=== PATIENT | female | born 1960 | race African-American/Black ===

== ENCOUNTER 2017-01-16 13:03 | Inpatient (IN) | payer OTHER ==
[~2017-01-16] VITALS: Ht 157.5 cm; Wt 51.3 kg
--- NOTE | ~2017-01-16 | EKG ---
[address] [address] ELECTROCARDIOGRAM REPORT Name: INGRID BARROS Room #: 417-I ADM IN M.R.#: [id number] Admission: 01/16/17 Attend Phys: Jayson Talbert Discharge: Date of : 60 Report #: [id number] THIS REPORT FOR: //name// [facility] ED Test Date: 2017-01-16 Test Time: 13:31:36 Pat Name: INGRID BARROS Department: Room: [facility] Gender: F Account Service Representative: fatimah : 1960 Requested By: Tad Wheatley Order Number: [id number] MD: Mateus Pena Measurements Intervals [place] Rate: 73 P: 52 AR: 160 QRS: 9 QRSD: 90 T: -27 QT: 422 QTc: 465 Interpretive Statements Sinus rhythm Nonspecific T abnormalities, anterior leads No previous ECG available for comparison Electronically Signed On 01-18-2017 9:43:31 CDT by Mateus Pena [email or web address] <ELECTRONICALLY SIGNED> By: Mateus Pena MD 01/18/17 0943 1331 30 Mateus Pena MD /MARSHA
--- NOTE | ~2017-01-16 | HC ---
[facility] [place] [address] CONSULTATION Name: INGRID BARROS Room #: 417-I ADM IN M.R.#: [id number] Admission: 01/16/17 Attend Phys: Jayson Talbert Discharge: Date of : 60 Report #: [id number] THIS REPORT FOR: //name// CC: MIGEL physician/PCP Jayson Talbert INFECTIOUS DISEASE CONSULTATION REASON FOR CONSULTATION: I was asked to evaluate concerning pneumonia in the setting of lung cancer. HISTORY OF PRESENT ILLNESS: The patient was a 56-year-old who presented to the emergency room with shortness of breath along with productive cough, a green sputum, myalgias, arthralgias, headache and low-grade fever with intermittent chills. Has progressed over the last 3 weeks. She is on for nonresectable lung cancer. Two years ago, she was diagnosed with right upper lobe lung cancer that was not amenable to surgical resection. She underwent radiation therapy followed by chemotherapy, which she did not tolerate well and was switched over to Opdivo, which has been well tolerated and the patient states her tumor has shown good response. She undergoes frequent CT scans. Her last CT of the chest was approximately one month ago at [facility]. She received her last Opdivo dose 2 weeks ago. No travel outside the [place]. No tuberculosis exposure. No history of histoplasma infection. PAST MEDICAL HISTORY: Otherwise, unremarkable. ALLERGIES: None known. MEDICATIONS: As noted on her MAR, including Zosyn and Levaquin that were started today. FAMILY HISTORY: Noncontributory. SOCIAL HISTORY: She was a past smoker of cigarettes. No significant alcohol intake. Now is disabled from being a hairdresser, lives with her daughter. REVIEW OF SYSTEMS: Had some nausea and emesis, but has been able to keep fluids down. No abdominal pain or diarrhea. No dysuria or frequency. No rash. No other arthritis symptoms. PHYSICAL EXAMINATION: VITAL SIGNS: Afebrile and hemodynamically stable. Oxygen saturation 98% on room air. SKIN: Unremarkable. LYMPH: Unremarkable. HEENT: Dentures, otherwise unremarkable. NECK: Supple. [facility] [address] [place] [address] CONSULTATION Name: INGRID BARROS Room #: 417-I ADM IN .R.#: [id number] Admission: 01/16/17 Attend Phys: Jayson Talbert Discharge: Date of : 60 Report #: [id number] LUNGS: Clear anteriorly. She had consolidation in the right eul-zv-kraxn posterior chest with consolidation. No rub. HEART: Tachycardic and regular. ABDOMEN: Soft, nontender. No hepatosplenomegaly or mass. EXTREMITIES: Unremarkable. She had a right chest Port-A-Cath, site was unremarkable. NEUROLOGIC EXAMINATION: Nonfocal. LABORATORY STUDIES: Sodium 141, potassium 3.7, bicarbonate 26 and creatinine 0.7. Alkaline phosphatase 142. Hemoglobin 12.4, platelet count 246,000 and white count 6.3. Differential unremarkable. Chest x-ray, right upper lobe infiltrate with destruction of rib. CT scan of the chest confirms the same with 6 x 5.8 x 3.1 cm cavitary lesion in the right upper lobe with a 2-cm cyst within the concerned area. Right lower lobe nodular density also present. Adjacent to this area were erosions of the ribs with sclerosis, suggesting chronic erosion. IMPRESSION: Extensive right lung upper lobe cancer, on chemotherapy and previous radiation in a nonresectable lesion. She has fever, increased sputum production concerning for secondary infection in this region. The bony erosions, I suspect, are chronic in nature and related to her tumor. RECOMMENDATIONS: Continue broad antibiotic coverage. Sputum culture. Blood culture and compare CT scan to her previous scan at [facility]. <ELECTRONICALLY SIGNED> By: Travis Rowell MD 01/17/17 0844 1603 0010 Travis Rowell MD /nt
[2017-01-16 13:04] VITALS: BP 99/67
[2017-01-16 13:56] LABS: ABSOLUTE NEUTROPHILS 4.1 thou/uL (1.4-8.2); BASOPHILS 0.8 % (0.0-2.0); EOSINOPHILS 2.8 % (0.0-3.0); HEMATOCRIT 37.9 % (37.0-47.0); HEMOGLOBIN 12.4 gm/dL (12.0-15.0); LYMPHOCYTES 21.1 % (24.0-44.0); MCH 28.5 pg (26.0-34.0); MCHC 32.7 g/dL (28.0-37.0); MCV 87.2 fL (80.0-100.0); MONOCYTES 10.1 % (1.0-8.0); PLATELET COUNT 246 thou/uL (150-400); POLYS 65.2 % (36.0-66.0); RBC 4.35 mil/uL (4.20-5.00); RDW 14.5 % (10.5-14.5); WBC 6.3 thou/uL (4.0-11.0)
[2017-01-16 13:58] LABS: MANUAL DIFF NO
[2017-01-16 14:06] LABS: ANION GAP 10 mmol/L (7-16); BUN 8 mg/dL (7-18); CALCIUM 9.1 mg/dL (8.5-10.1); CHLORIDE 105 mmol/L (98-107); CO2 26 mmol/L (21-32); CREATININE 0.7 mg/dL (0.6-1.0); GLUCOSE 107 mg/dL (74-106); POTASSIUM 3.7 mmol/L (3.5-5.1); SODIUM 141 mmol/L (136-145)
[2017-01-16 14:13] LABS: ALBUMIN 3.4 g/dL (3.4-5.0); ALKALINE PHOSPHATASE 142 U/L (46-116); SGOT 18 U/L (15-37); SGPT 19 U/L (30-65); TOTAL BILIRUBIN 0.3 mg/dL (<0.1-1.0); TOTAL PROTEIN 7.6 g/dL (6.4-8.2); TROPONIN-I < 0.04 ng/mL (<0.04-0.07)
[2017-01-16] MEDS ORDERED: NORCO 10-325 T1 EACH PO (14:46)
[2017-01-16] MEDS ORDERED: MS CONTIN 30 MG30 MG PO (14:49)
[2017-01-16] MEDS ORDERED: MS CONTIN 60 MG60 M1 PO (14:50)
[2017-01-16] MEDS ORDERED: LEXAPRO 10 MG T10 M1 PO (14:50)
[2017-01-16] MEDS ORDERED: UNICOMPLEX M TA1 TA1 PO (14:51)
[2017-01-16] MEDS ORDERED: VITAMIN D1000 UNIT PO (14:51)
[2017-01-16 15:41] VITALS: BP 127/58
[2017-01-16 16:41] VITALS: BP 105/55
[2017-01-16 20:00] VITALS: BP 117/93
[2017-01-17] VITALS: BP 107/68
[2017-01-17 04:00] VITALS: BP 117/82
[2017-01-17 07:53] VITALS: BP 117/71
[2017-01-17 15:52] VITALS: BP 106/73
[2017-01-17 20:00] VITALS: BP 116/85
[2017-01-18 04:00] VITALS: BP 105/65
[2017-01-18 07:23] VITALS: BP 99/59
[2017-01-18] MEDS ORDERED: AUGMENTIN 875875 MG PO (09:48)
[2017-01-18 10:22] VITALS: BP 99/59
[2017-01-19 15:19] LABS: NIL (NEGATIVE) CONTROL SPOT CT 1; PANEL A SPOT CT 1; PANEL B SPOT CT 2; T-SPOT.TB Negative
[2017-01-19 15:20] LABS: POSITIVE CONTROL SPOT COUNT > 20
== END 2017-01-18 10:57 | disposition home or self-care (01) | DRG 193 ==
LOC: ER 13:03 → EROBS 14:36 → 4E 14:36
PROVIDERS: Hospitalist; Physician Assistant
DX: J15.9 Unspecified bacterial pneumonia (principal); J85.0 Gangrene and necrosis of lung; C34.11 Malignant neoplasm of upper lobe, right bronchus or lung; J70.1 Chronic and other pulmonary manifestations due to radiation; C50.911 Malignant neoplasm of unspecified site of right female breast; M85.80 Other specified disorders of bone density and structure, unspecified site; Z87.891 Personal history of nicotine dependence; Z79.899 Other long term (current) drug therapy
CPT/HCPCS: 10183

== ENCOUNTER 2018-12-18 11:35 | Emergency (ER) | payer OTHER ==
[~2018-12-18] VITALS: Ht 157.5 cm; Wt 63.5 kg
[~2018-12-18 11:35] MED LIST: AUGMENTIN 875875 MG PO; LEXAPRO 10 MG T10 M1 PO; MS CONTIN 30 MG30 MG PO; MS CONTIN 60 MG60 M1 PO; NORCO 10-325 T1 EACH PO; UNICOMPLEX M TA1 TA1 PO; VITAMIN D1000 UNIT PO
[2018-12-18 13:20] VITALS: BP 120/51
== END 2018-12-18 13:21 | disposition home or self-care (01) ==
LOC: ER 11:35
DX: S60.112A Contusion of left thumb with damage to nail, initial encounter (principal); Z85.118 Personal history of other malignant neoplasm of bronchus and lung; Z87.891 Personal history of nicotine dependence; X58.XXXA Exposure to other specified factors, initial encounter; Y93.89 Activity, other specified; Y92.89 Other specified places as the place of occurrence of the external cause; Y99.8 Other external cause status

== ENCOUNTER 2021-04-20 12:42 | Emergency (ER) | payer OTHER ==
[~2021-04-20] VITALS: Ht 154.9 cm; Wt 54.9 kg
--- NOTE | ~2021-04-20 | EMS ---
[address] [address] EMS Patient Care Report Name: INGRID LOYA Room #: DEP JIM Vidal#: [id number] Admission: 04/20/21 Attend Phys: Discharge: 04/20/21 Date of : 60 Report #: [id number] THIS REPORT FOR: //name// Report Transmitted: 04/21/2021 07:59 EMS Care Summary [place], [place]/[facility] Incident [id number] @ 04/20/2021 12:05 Incident Location [address] [place] [address] Patient INGRID LOYA Female, 60 Years 1960 Patient Address [address] [place], [place] [id number] Patient History Lung Cancer,Hernia (Abdominal), Patient Allergies No known allergies, Patient Medications None Reported, Chief Complaint WEAKNESS AND NAUSEA Disposition Transported No Lights/[place] Dispatch Reason Sick Person Transported To [facility] Narrative Upon arrival we found a 60 yr old female patient walking in her apartment. Her chief complaint was generalized weakness. Then helped her to the ambulance [address] [address] EMS Patient Care Report Name: INGRID LOYA Room #: DEP Marcy#: [id number] Admission: 04/20/21 Attend Phys: Discharge: 04/20/21 Date of : 60 Report #: [id number] where we obtained baseline vitals. Upon her request we transferred her to [facility]. Initial Vitals @12:20P: 88,R: 16,BP: 103/74,Pain: 0/10,GCS: 15,Glucose: 83,SpO2: 97,Revised Trauma: 12, @12:33P: 75,R: 16,BP: 124/74,Pain: 0/10,GCS: 15,CO: 0,SpO2: 99,Revised Trauma: 12, Assessments @12:18MENTAL:Event Oriented,Person Oriented,Time Oriented,Place Oriented,SKIN:HEENT:Head/Face: No Abnormalities,Neck/Airway: No Abnormalities,LUNG SOUNDS:General: Nausea,ABDOMEN:General: Nausea,PELVIS//GI:EXTREMITIES:Left Arm: No Abnormalities,Right Arm: No Abnormalities,Left Leg: No Abnormalities,Right Leg: No Abnormalities,PULSE:Radial: 2+ Normal,NEURO:No Abnormalities, Impression Generalized Weakness Procedures @12:18BLS AssessmentResponse: Unchanged Timeline 12:03,Call Received 12:03,Dispatch Notified 12:05,Dispatched 12:06,En Route 12:15,On Scene 12:18,At Patient 12:18,BLS Assessment,Response: Unchanged 12:20,BP: 103/74 M,PULSE: 88,RR: 16 R,SPO2: 97 Ox,ETCO2: ,B,PAIN: 0,GCS: 15, 12:21,Depart Scene 12:33,BP: 124/74 M,PULSE: 75,RR: 16 R,SPO2: 99 Ox,ETCO2: ,BG: ,PAIN: 0,GCS: 15, 12:34,At Destination 13:16,Call Closed Disclaimer v1.1 Copyright 202 [employer] This EMS Care Summary contains data elements from the applicable legal record (which may be displayed differently). It is designed to provide pertinent information for the following purposes: continuity of care, clinical quality, and state data reporting. The complete legal record is available to ED staff and administrators of the receiving hospital in [employer] Patient Tracker. All data is provided "as is."
[2021-04-20 13:13] LABS: ABSOLUTE NEUTROPHILS 1.3 thou/uL (1.4-8.2); BASOPHILS 0.6 % (0.0-2.0); EOSINOPHILS 0.2 % (0.0-3.0); HEMOGLOBIN 12.3 gm/dL (12.0-15.0); LYMPHOCYTES 42.1 % (24.0-44.0); MCH 28.6 pg (26.0-34.0); MCHC 32.4 g/dL (28.0-37.0); MCV 88.3 fL (80.0-100.0); MONOCYTES 18.2 % (1.0-8.0); PLATELET COUNT 155 thou/uL (150-400); POLYS 38.9 % (36.0-66.0); RBC 4.31 mil/uL (4.20-5.00); RDW 14.6 % (10.5-14.5); WBC 3.4 thou/uL (4.0-11.0)
[2021-04-20 13:18] LABS: CALCIUM 9.3 mg/dL (8.5-10.1); CREATININE 0.9 mg/dL (0.6-1.0)
[2021-04-20 13:25] LABS: ALBUMIN 3.8 g/dL (3.4-5.0); TOTAL BILIRUBIN 0.3 mg/dL (0.2-1.0); TOTAL PROTEIN 7.7 g/dL (6.4-8.2)
[2021-04-20] MEDS ORDERED: BENTYL 10 MG CA10 M1 PO (15:26)
[2021-04-20] MEDS ORDERED: ZOFRAN ODT4 MG PO (15:26)
[2021-04-20 15:40] VITALS: BP 111/64
== END 2021-04-20 15:40 | disposition home or self-care (01) ==
LOC: ER 12:42
PROVIDERS: Emergency Medicine
DX: R10.13 Epigastric pain (principal); R11.2 Nausea with vomiting, unspecified; K43.7 Other and unspecified ventral hernia with gangrene; Z85.118 Personal history of other malignant neoplasm of bronchus and lung; Z79.891 Long term (current) use of opiate analgesic; Z79.899 Other long term (current) drug therapy; Z87.891 Personal history of nicotine dependence